=== PATIENT | male | born 1965 | race Caucasian/White ===

== ENCOUNTER 2017-04-23 12:00 | Inpatient (IN) | payer OTHER ==
[~2017-04-23] VITALS: Ht 180.3 cm; Wt 97.5 kg
--- NOTE | ~2017-04-23 | PN ---
Unit #: [id number] #: [id number] Patient: MADDI ANTHONY II [id number] [facility] [address] [place] [address] [id number] MR#: [id number] NAME: MADDI ANTHONY II ROOM: [facility] Age: 51 Sex: M Admission Date: 04/23/2017 : 1965 Attending Physician: Fausto De Leon M.D. Admitting Physician: Fausto De Leon M.D. Primary Care Physician: Primary Care Physician Daija BUCKNER NOTES DATE 04/25/2017 DISCUSSION Mr. Maddi Anthony is a 51-year-old male, seen on 04/25/2017. The patient interviewed, chart reviewed, and obtained information from the nursing staff. The patient's vital signs stable 98.4, 65, and 143/86. The patient reports feeling better, compliant and cooperative, somewhat isolative, guarded. The patient compliant with medication. No side effects from medication, sleeping good. The patient was admitted with the amphetamine-induced psychosis. Reports feeling better. REVIEW OF SYSTEMS Complete review of systems unremarkable. MENTAL STATUS EXAMINATION General appearance: Patient dressed in hospital attire. Attention span and concentration, fair. Oriented in time, place, and person. Mood and affect, labile. Speech, regular rate. Thought process, goal-directed. The patient denied any suicidal or homicidal ideation, denied any psychotic symptoms but somewhat guarded. Recent and remote memory, poor. Insight and judgment, poor. DIAGNOSES 1. Amphetamine-induced psychosis. 2. Psychosis, NOS. ASSESSMENT/PLAN Advised to continue with the current medication and therapeutic protocol, and if needed consider further adjustment of medication. Dictated by... Mary Ramirez/burt TD: 04/26/2017 08:39 Unit #: [id number] #: [id number] Patient: MADDI ANTHONY II JOB #: [id number] DANIELLE PROGRESS NOTES Page 1 of 1 X Fausto De Leon MD PROGRESS NOTE
--- NOTE | ~2017-04-23 | PN ---
Unit #: [id number] #: [id number] Patient: MADDI ANTHONY II [id number] [facility] [address] [place] [address] [id number] MR#: [id number] NAME: MADDI ANTHONY II ROOM: [facility] Age: 51 Sex: M Admission Date: 04/23/2017 : 1965 Attending Physician: Fausto De Leon M.D. Admitting Physician: Fausto De Leon M.D. Primary Care Physician: Primary Care Physician Daija BAIRESCE PROGRESS NOTES DATE OF SERVICE: 04/24/2017 DISCUSSION Maddi Anthony is a 51-year-old male, seen on 04/24/2017. The patient interviewed, chart reviewed, and obtained information from nursing staff. The patient dressed in hospital attire, still reporting feeling sad and depressed. Vital signs; temperature 98.6, heart rate 90, and blood pressure 156/114. The patient had multiple bite soriano on both of his arms, reported from picking on his skin. The patient was using meth, gasoline huffing, and marijuana. The patient has a good support system from his . The patient still sad and depressed. REVIEW OF SYSTEMS Complete review of systems unremarkable. MENTAL STATUS EXAMINATION General appearance, the patient dressed in hospital attire. Attention span and concentration, fair. Oriented in time, place, and person. Mood and affect; sad, dysphoric, flat, and withdrawn. Speech, monotone. Thought process, concrete. The patient denied any thoughts of harming self or others, but having bad thoughts, hopelessness, sad, and depressed. Recent and remote memory, poor. Insight and judgment, poor. DIAGNOSES Amphetamine use disorder, severe and psychosis, not otherwise specified. ASSESSMENT AND PLAN Advised to continue with current medication and therapeutic protocol. If needed, consider further adjustment of medication. The patient is currently on Zyprexa 5 mg b.i.d. Dictated by... Fausto De Leon M.D. GINA/juan miguel TD: 04/24/2017 18:54 JOB #: [id number] Unit #: [id number] #: [id number] Patient: MADDI ANTHONY II [facility] PROGRESS NOTES Page 1 of 1 X Fausto De Leon MD X PROGRESS NOTE
--- NOTE | ~2017-04-23 | HP ---
Unit #: [id number] #: [id number] Patient: MADDI ANTHONY II [id number] [place] [address] [id number] MR#: [id number] NAME: MADDI ANTHONY II ROOM: [facility] Age: 51 Sex: M Admission Date: 04/23/2017 : 1965 Attending Physician: Fausto De Leon M.D. Admitting Physician: Fausto De Leon M.D. Primary Care Physician: Primary Care Physician No HISTORY AND PHYSICAL HISTORY OF PRESENT ILLNESS Maddi is a 51-year-old male admitted on 04/23/2017 for withdrawal from meth and psychosis. He reports hearing voices and has paranoia. PAST MEDICAL HISTORY 1. Psoriasis. 2. Hypertension. 3. Renal cancer. 4. GERD. PAST SURGICAL HISTORY 1. Left kidney removal for renal cancer. 2. Left hip replacement. ALLERGIES Lisinopril. SOCIAL HISTORY Denies tobacco use. Does report occasional binge alcohol use with his most recent use of a month ago and methamphetamine use. He is currently and living with his . FAMILY HISTORY Noncontributory. REVIEW OF SYSTEMS CONSTITUTIONAL: No fever or chills. HEENT: Denies any sore throat, ear pain or runny nose. CARDIOVASCULAR: Denies chest pain, irregular heart rhythm or palpitations. CHEST: Denies shortness of breath or cough. No hemoptysis. GASTROINTESTINAL: Denies nausea, vomiting, diarrhea or chronic constipation. ENDOCRINE: Denies history of increased thirst or urination. No recent significant weight loss or gain. GENITOURINARY: Denies dysuria, frequency, or hematuria. SKIN: Denies any rashes. HEMATOLOGIC: Denies history of increased bleeding or bruising. MUSCULOSKELETAL: Denies any hot, swollen joints. No generalized muscle pain. NEUROLOGIC: Denies problems with vision or speech. No frequent, severe headaches. No numbness, tingling or weakness in any extremities. Denies loss of bladder or bowel control. Unit #: [id number] #: [id number] Patient: MADDI ANTHONY II CURRENT MEDICATIONS 1. Prilosec. 2. Losartan/HCTZ. PHYSICAL EXAMINATION GENERAL: Alert, oriented, in no acute distress. VITAL SIGNS: Blood pressure 149/103, heart rate 94, respirations 16, temperature 98.2. HEIGHT: 5 feet 11. WEIGHT: 215 pounds. SKIN: Warm and dry without rash or lesion. HEENT: Normocephalic. TMs not viewed. Oral and nasal passages clear. Conjunctivae clear. PERRLA. EOMs intact. NECK: Supple without lymphadenopathy or thyromegaly. HEART: Regular rate and rhythm without murmur. LUNGS: Clear. ABDOMEN: Soft, nontender, without masses or hepatosplenomegaly. : Not done. EXTREMITIES: No evidence of cyanosis, clubbing or edema. Moves all without focal deficit. NEUROLOGICAL: Grossly within normal limits. Cranial Nerves: II: Visual odonnell are intact. III, IV AND : Extraocular movements are intact. Pupils are equal, round and reactive to light. V: Facial sensation is grossly normal. VII: Facial movements and expression are normal. VIII: Auditory acuity grossly intact. IX, X: Uvula is midline. Phonation is normal. XI: Patient shrugs shoulders and turns head normally. XII: Tongue protrudes in the midline. Sensory and Motor Function: Sensory and motor sensation is grossly normal. Motor: moves all extremities well. Coordination: Gait is normal. Deep Tendon Reflexes: Intact. IMPRESSION 1. Psychiatric admission. 2. Psoriasis. 3. Hypertension. 4. Gastroesophageal reflux disease. 5. Renal cancer. RECOMMENDATIONS PSYCHIATRIC: Per psychiatrist. MEDICAL: No contraindication to participate in facility's activities. MEDICAL PROGNOSIS Good. MEDICAL CONDITION Stable. Dictated by... Lizette Kapadia A.P.R.N. Son/[facility] Unit #: [id number] #: [id number] Patient: MADDI ANTHONY II TD: 04/24/2017 19:48 JOB #: [id number] HISTORY AND PHYSICAL Page 1 of 1 X LIZETTE CHANEY APRN HISTORY AND PHYSICAL
--- NOTE | ~2017-04-23 | PA ---
Unit #: [id number] #: [id number] Patient: MADDI ANTHONY II [id number] [place] [address] [id number] MR#: [id number] NAME: MADDI ANTHONY II ROOM: [facility] Age: 51 Sex: M Admission Date: 04/23/2017 : 1965 Date of Assessment: Attending Physician: Fausto De Leon M.D. Admitting Physician: Fausto De Leon M.D. Primary Care Physician: Primary Care Physician No PSYCHIATRIC ASSESSMENT INFORMANTS The patient's reliability, fair; chart reliability, good. CHIEF COMPLAINT Meth abuse, meth withdrawal, anxious, paranoid, hallucination. HISTORY OF PRESENT ILLNESS Mr. Cano is a 51-year-old male, presented with the above-mentioned complaint. The patient reported that I have been taking meth. The patient reports that he stopped for 7 weeks, started using again. The patient reported hearing things and hearing voices. The patient lives at home with his and son. The patient was paranoid, rapid speech, disorganized thought process, disorganized behavior. The patient reported auditory hallucination telling him to turn the car around, go into the closet, and that his wants to kill him. The patient reported hearing multiple voices, paranoid, believes the cameras are placed in a house. The patient stated that the voices have picture. The patient denied any suicidal ideation or homicidal ideation, but having above-mentioned symptoms; therefore, needing inpatient treatment for psychiatric stabilization. PAST PSYCHIATRIC HISTORY Unknown for any history of any previous treatment. No history of any suicide attempt or any inpatient or outpatient treatment. FAMILY HISTORY AND SOCIAL HISTORY The patient has a good support system from his . Family psychiatric illness is unknown. No known history of any legal charges. MEDICAL HISTORY Remarkable for scabies, psoriasis, hypertension. MEDICATION HISTORY The patient is on Prilosec and losartan. ALLERGIES No known drug allergies. SUBSTANCE ABUSE HISTORY The patient's age of onset of alcohol 16; marijuana, 16; inhalant, 16; amphetamine, 51. Longest period of sobriety 5 years. The patient denied any history of any blackout, HIV, hepatitis, withdrawal symptom, or any IV drug use, but currently having psychotic symptom. Unit #: [id number] #: [id number] Patient: MADDI ANTHONY II REVIEW OF SYSTEMS HEENT: Eyes, clear. Ears, nose, mouth, and throat; clear. CARDIOVASCULAR: Unremarkable. RESPIRATORY: Unremarkable. GI: Unremarkable. : Unremarkable. SKIN: Unremarkable. LYMPH NODE: Unremarkable. NEUROLOGIC: Unremarkable. ENDOCRINE: Unremarkable. HEMATOLOGIC: Unremarkable. ALLERGIC/IMMUNOLOGIC: Unremarkable. MUSCULOSKELETAL: Muscle strength and tone, no atrophy or abnormal movement. Gait normal. MENTAL STATUS EXAMINATION CONSTITUTIONAL: Measurement of vital signs; temperature 98.0, pulse 81, respirations 18, blood pressure 168/114. GENERAL APPEARANCE: The patient dressed casually. The patient did not show any facial deformity. MUSCULOSKELETAL: Please see above. PSYCHIATRIC EXAMINATION Description of speech; rapid, circumstantial. Description of thought process, circumstantial and guarded. Description of association, guarded and paranoid. Description of abnormal psychotic thinking; paranoid, delusional, attending to internal stimuli, auditory hallucination. Please refer to HPI for detail. Description of the patient's judgment; concerning everyday activity, poor. Social situation, poor. Concerning psychiatric condition, poor. Complete mental status examination; oriented in time, place, and person. Recent and remote memory, poor. Attention span and concentration, poor. Language, fair. Fund of knowledge, poor. Vocabulary, fair. Mood and affect, labile. Insight and judgment, fair to poor. ASSETS AND LIABILITIES Assets; the patient articulate, able to take care of his ADL. Liability, substance abuse. ADMITTING DIAGNOSES Psychiatric: 1. Psychosis, not otherwise specified, F29.0. 2. 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 3. Amphetamine use disorder, moderate, F15.20. Secondary diagnosis: Deferred. Medical diagnosis: Scabies, psoriasis, hypertension. Stressors: Psychosocial stressors. PSYCHIATRIC PLAN AND TREATMENT GOAL 1. Advised to admit the patient on the inpatient unit. Provide safe, supportive, and structured environment. 2. Ordered labs; CBC, CMP, UA, and UDS. 3. Precaution for psychosis and aggression, self-harm. 4. Advised Zyprexa 5 mg b.i.d. and one dose now for psychotic symptom. Unit #: [id number] #: [id number] Patient: MADDI ANTHONY II The patient to attend all the programing with chemical dependency group, group therapy, individual therapy, family session. Treatment goal to attain euthymic mood, gain insight into his problem, and learn coping skills. DISCHARGE PLAN Plan to stabilize the patient and consider followup in outpatient program. ESTIMATED LENGTH OF STAY 5 days. Dictated by... Mary Ramirez/juan miguel TD: 04/24/2017 02:46 JOB #: [id number] PSYCHIATRIC ASSESSMENT Page 1 of 1 X Fausto De Leon MD X PSYCHIATRIC ASSESSMENT
--- NOTE | ~2017-04-23 | PN ---
Unit #: [id number] #: [id number] Patient: MADDI ANTHONY II [id number] [facility] [address] [place] [address] [id number] MR#: [id number] NAME: MADDI ANTHONY II ROOM: [facility] Age: 51 Sex: M Admission Date: 04/23/2017 : 1965 Attending Physician: Fausto De Leon M.D. Admitting Physician: Fausto De Leon M.D. Primary Care Physician: Primary Care Physician No [facility] PROGRESS NOTES DATE 04/26/2017 DISCUSSION Maddi Anthony is a 51-year-old male seen on 04/26/2017. Patient interviewed. Chart reviewed. Obtained information from nursing staff. Patient reported making progress, decrease in anxiety. Sleeping good. Tolerating medication fairly well. Vital signs stable, 98.7, 87, 124/81. Complete review of system unremarkable. MENTAL STATUS EXAMINATION General appearance, patient dressed casually. Attention span, concentration fair. Oriented in time, place and person. Mood and affect was labile. Speech monotone. Thought process concrete. Patient denied any thoughts of harming self or others. Recent and remote memory poor. Insight and judgement poor. DIAGNOSES 1. Amphetamine induced psychosis. 2. Amphetamine use disorder, moderate to severe. ASSESSMENT/PLAN Advised to continue with current medication and therapeutic protocol with a plan to consider discharge this week and follow up in outpatient program. Dictated by... Mary Ramirez/kevin TD: 04/26/2017 21:31 JOB #: [id number] Unit #: [id number] #: [id number] Patient: MADDI ANTHONY II [facility] PROGRESS NOTES Page 1 of 1 X Fausto De Leon MD X PROGRESS NOTE
--- NOTE | ~2017-04-23 | CO ---
Unit #: [id number] #: [id number] Patient: MADDI ANTHONY II [id number] [place] [address] [id number] MR#: [id number] NAME: MADDI ANTHONY II ROOM: [facility] [place] Age: 51 Sex: M Admission Date: 04/23/2017 : 1965 Attending Physician: Fausto De Leon M.D. Primary Care Physician: Primary Care Physician No Consultation Date: 04/24/2017 CONSULTATION REPORT HISTORY OF PRESENT ILLNESS Maddi has a history of psoriasis and previously had been using steroid cream which helped some. He reports psoriasis on his arms, legs, and back. It has been quite a while since he has had any treatment for this. He also has a history of high blood pressure and has been taking losartan/hydrochlorothiazide; however, he has not been taking this for the past several months as prescribed. No chest pain. No shortness of breath. He denies any itching of his skin. No bleeding and has no other complaints. PHYSICAL EXAMINATION CARDIAC: Regular rate and rhythm. No murmurs, gallops, or rubs. RESPIRATORY: Clear to auscultation bilaterally. SKIN: Plaque psoriasis on bilateral forearms, back, and bilateral leg. ASSESSMENT AND PLAN 1. Psoriasis. We will begin clobetasol cream apply b.i.d. for 2 weeks. The patient is to follow up with primary care provider. 2. Hypertension. He has not been restarted on his losartan/hydrochlorothiazide. We will add clonidine p.r.n. and the patient again will follow up with primary care provider. Dictated by... Rob Jones/juan miguel TD: 04/25/2017 03:05 JOB #: [id number] CONSULTATION REPORT Page 1 of 1 X LIZETTE CHANEY APRN X CONSULTATION REPORT
--- NOTE | ~2017-04-23 | DS ---
Unit #: [id number] #: [id number] Patient: MADDI ANTHONY II [id number] [facility] [address] [place] [address] [id number] MR#: [id number] NAME: MADDI ANTHONY II ROOM: [facility] Age: 51 Sex: M Admission Date: 04/23/2017 : 1965 Discharge Date: 04/27/2017 Attending Physician: Fausto De Leon M.D. Primary Care Physician: No Primary Care Physician DISCHARGE SUMMARY REASON FOR ADMISSION Chemical dependency, detox, auditory hallucinations, paranoia. DIAGNOSTIC STUDIES LABORATORY DATA: Urine drug screen positive for amphetamine. HOSPITAL COURSE Patient was admitted to inpatient unit on April 23 and discharged on 04/27/17. Patient was treated on the inpatient unit with chemical dependency, group and individual therapy, medication management, psychoeducation, and structured milieu. Patient was responsive to treatment and showed improvement. Subsequently, patient was discharged on Zyprexa. DISCHARGE MEDICATIONS Zyprexa 5 mg at bed for psychosis and mood stabilization. DISCHARGE DIAGNOSES PSYCHIATRIC 1. Psychosis, not otherwise specified, F49.0. 2. Amphetamine use psychotic disorder, F15.259. 3. Amphetamine use disorder, [id number], F15.20. SECONDARY DIAGNOSIS: Deferred. MEDICAL DIAGNOSES 1. Psoriasis. 2. Hypertension. STRESSORS: Psychosocial stressors. INSTRUCTIONS TO PATIENT Patient to follow up in outpatient clinic as per social media developer. CONDITION ON DISCHARGE Patient pleasant and cooperative. Denied any psychotic symptoms or any suicidal ideation. PROGNOSIS Guarded. DIET AND ACTIVITY Unit #: [id number] #: [id number] Patient: MADDI ANTHONY II As tolerated. Dictated by... Fausto De Leon M.D. GINA/alek TD: 04/28/2017 13:50 JOB #: [id number] DISCHARGE SUMMARY Page 1 of 1 X Fausto De Leon MD X DISCHARGE SUMMARY
[2017-04-24 09:59] LABS: BASOPHIL# 0.1 X10e3 (0-0.3); BASOPHIL% 1.3 % (0-2.5); EOSINOPHIL# 0.4 X10e3 (0-0.7); EOSINOPHIL% 5.9 % (0.0-7.0); HEMATOCRIT 44.9 % (38.0-50.0); HEMOGLOBIN 15.2 gm/dL (13.0-16.0); LYMPHOCYTE# 1.3 X10e3 (1.0-3.5); LYMPHOCYTE% 19.1 % (17.0-45.0); MEAN CELL VOLUME 85.5 FL (83-96); MEAN CORPUSCULAR HEMOGLOBIN 28.8 PG (28-34); MEAN CORPUSCULAR HGB CONC 33.7 g/dL (30-36); MEAN PLATELET VOLUME 7.8 FL (6.5-11.5); MONOCYTE# 0.4 X10e3 (0-1.0); MONOCYTE% 5.4 % (3.0-12.0); NEUTROPHIL# 4.5 X10e3 (1.5-7.1); NEUTROPHIL% 68.3 % (40-75); PLATELET COUNT 240 X10e3 (140-420); RED BLOOD COUNT 5.26 X10e (3.90-5.60); RED CELL DISTRIBUTION WIDTH 14.4 % (11.0-15.5); WHITE BLOOD COUNT 6.6 X10e3 (4.0-10.5)
[2017-04-24 10:05] LABS: ALBUMIN SERUM 3.9 g/dL (3.5-5.0); BILIRUBIN,TOTAL 0.9 mg/dL (0.2-2.0); BUN/CREATININE RATIO 8.57; CALCIUM SERUM 9.5 mg/dL (8.4-10.2); CREATININE SERUM 1.4 mg/dL (0.6-1.4); DIFF IND NO; GLOM FILT RATE Estimated 58.6 mL/min (>60); POTASSIUM 4.3 mmol/L (3.5-5.1); PROTEIN TOTAL SERUM 7.4 g/dL (6.0-8.3)
[2017-04-24 10:08] LABS: URINE APPEARANCE CLEAR; URINE BILIRUBIN NEG (NEG); URINE BLOOD 2+ (NEG); URINE COLOR YELLOW; URINE GLUCOSE NEG (NEG); URINE KETONE NEG (NEG); URINE LEUKOCYTE ESTERASE NEG (NEG); URINE NITRATE NEG (NEG); URINE PROTEIN 2+ (NEG); URINE SPECIFIC GRAVITY 1.012 (1.003-1.035); URINE UROBILINOGEN 0.2 MG/DL (NEG)
[2017-04-24 10:10] LABS: URINE BACTERIA AUWI NEG (NEGATIVE); URINE SQUAMOUS EPITHELIAL CELL NONE SEEN /[HPF]; UWBCS1 AUWI 0-2 (0-5)
[2017-04-24 10:17] LABS: AMPHETAMINE POS (NEG); BARBITURATES NEG (NEG); BENZODIAZEPINES NEG (NEG); COCAINE NEG (NEG); MARIJUANA NEG (NEG); OPIATES NEG (NEG); TRICYCLIC ANTIDEPRESSANTS NEG (NEG); U METHADONE NEG (NEG)
== END 2017-04-27 12:35 | DRG 897 ==
LOC: P2S 15:15
PROVIDERS: Psychiatry & Neurology Psychiatry
PROC: HZ2ZZZZ Detoxification Services for Substance Abuse Treatment (ICD-10-PCS; principal; 2017-04-23)
DX: F15.20 Other stimulant dependence, uncomplicated (principal); F15.259 Other stimulant dependence with stimulant-induced psychotic disorder, unspecified; B86 Scabies; L40.9 Psoriasis, unspecified
CPT/HCPCS: 80053; 80307; 81003; 85025